=== PATIENT | male | born 1950 | race American Indian/Alaskan Native ===

== ENCOUNTER 2017-09-23 16:31 | Emergency (ER) | payer MEDICARE ==
[2017-09-23 16:51] VITALS: RESP 16; TEMP 98.7; O2SAT 99
--- NOTE | 2017-09-23 17:17 | ED PDOC ---
Arrival/HPI - General Chief Complaint: Abnormal Labs Time Seen by Provider: 09/23/17 16:38 Historian: Patient - History of Present Illness Narrative History of Present Illness (Text): 09/23/17 17:07 A 67 year old male, whose past medical history includes diabetes and hypertension, sent by PMD and presents to the emergency department for abnormal labs. Patient reports having lab work performed yesterday and was called by Dr. Seth Van for abnormal potassium level, however was not told if low or high. Patient denies any symptomatic complaints at this time. PMD: Dr. Seth Van Past Medical History - Provider Review Nursing Documentation Reviewed: Yes - Infectious Disease Hx of Infectious Diseases: None - Cardiac Hx Hypertension: Yes - Endocrine/Metabolic Hx Diabetes Mellitus Type 2: Yes - Psychiatric Hx Substance Use: No Family/Social History - Physician Review Nursing Documentation Reviewed: Yes Family/Social History: No Known Family HX Smoking Status: Never Smoked Hx Alcohol Use: No Hx Substance Use: No Allergies/Home Meds Allergies/Adverse Reactions: Allergies No Known Allergies Allergy (Verified 09/23/17 16:52) Home Medications: Home Meds Medication Instructions Recorded Confirmed GlipiZIDE [Glucotrol] 1 tab PO BID 09/23/17 09/23/17 MetFORMIN [glucoPHAGE] 1 tab PO BID 09/23/17 09/23/17 Review of Systems - Physician Review All systems were reviewed & negative as marked: Yes - Review of Systems Constitutional: absent: Fevers, Night Sweats Respiratory: absent: SOB, Cough Cardiovascular: absent: Chest Pain Gastrointestinal: absent: Abdominal Pain, Diarrhea, Nausea, Vomiting Neurological: absent: Headache, Dizziness Physical Exam Vital Signs Reviewed: Yes Vital Signs Temp Pulse Resp BP Pulse Ox 09/23/17 16:49 98.7 F 74 16 148/82 99 Temperature: Afebrile Blood Pressure: Normal Pulse: Regular Respiratory Rate: Normal Appearance: Positive for: Well-Appearing, Non-Toxic, Comfortable Pain Distress: None Mental Status: Positive for: Alert and Oriented X 3 - Systems Exam Head: Present: Atraumatic, Normocephalic Pupils: Present: PERRL Extroacular Muscles: Present: EOMI Conjunctiva: Present: Normal Mouth: Present: Moist Mucous Membranes Neck: Present: Normal Range of Motion Respiratory/Chest: Present: Clear to Auscultation, Good Air Exchange. No: Respiratory Distress, Accessory Muscle Use Cardiovascular: Present: Regular Rate and Rhythm, Normal S1, S2. No: Murmurs Abdomen: No: Tenderness, Distention, Peritoneal Signs Back: Present: Normal Inspection Upper Extremity: Present: Normal Inspection. No: Cyanosis, Edema Lower Extremity: Present: Normal Inspection. No: Edema Neurological: Present: GCS=15, CN II-XII Intact, Speech Normal Skin: Present: Warm, Dry, Normal Color. No: Rashes Psychiatric: Present: Alert, Oriented x 3, Normal Insight, Normal Concentration Medical Decision Making ED Course and Treatment: 09/23/17 17:10 Impression: 67 year old male with abnormal potassium level sent by PMD Dr. Seth Van. No acute findings on physical examination. Plan: -- Labs -- Reassess and disposition Progress Notes: BMP done, K=5.4. No EKG changes. Case discussed with Dr. Van, he agrees with emergency department plan to discharge patient with outpatient followup. Discussed results and plan with patient and patient's daughter, they are amenable. Reassessment Condition: Unchanged - Lab Interpretations Lab Results: 09/23/17 17:26 09/23/17 17:26 Lab Results 09/23/17 17:26: Sodium 141, Potassium 5.4 H, Chloride 105, Carbon Dioxide 24, Anion Gap 17, BUN 37 H, Creatinine 1.7 H, Est GFR ( Amer) 49, Est GFR ( Non-Af Amer) 41, Random Glucose 114 H, Calcium 9.3, Phosphorus 4.2, Magnesium 1.8, Total Bilirubin 0.2, AST 40, ALT 33, Alkaline Phosphatase 73, Total Protein 8.1, Albumin 4.4, Globulin 3.7, Albumin/Globulin Ratio 1.2 09/23/17 17:26: WBC 6.3, RBC 3.89, Hgb 10.7 L, Hct 32.0 L, MCV 82.3, MCH 27.5, MCHC 33.4, RDW 14.0, Plt Count 154, MPV 10.4, Gran % 45.5 L, Lymph % (Auto) 46.8 H, [place] % (Auto) 5.4, Eos % (Auto) 2.1, Baso % (Auto) 0.2, Gran # 2.88, Lymph # (Auto) 3.0, [place] # (Auto) 0.3, Eos # (Auto) 0.1, Baso # (Auto) 0.01 - EKG Interpretation EKG Interpretation (Text): 18:41- NSR rate 62, QRS normal 86, QTc normal 408, no ST/T changes Type: 12 lead EKG - Scribe Statement The provider has reviewed the documentation as recorded by the Ekaterina Hanson Provider Scribe Attestation: All medical record entries made by the Scribe were at my direction and personally dictated by me. I have reviewed the chart and agree that the record accurately reflects my personal performance of the history, physical exam, medical decision making, and the department course for this patient. I have also personally directed, reviewed, and agree with the discharge instructions and disposition. Disposition/Present on Arrival - Present on Arrival Any Indicators Present on Arrival: No History of DVT/PE: No History of Uncontrolled Diabetes: No Urinary Catheter: No History of Decub. Ulcer: No History Surgical Site Infection Following: None - Disposition Have Diagnosis and Disposition been Completed?: Yes Diagnosis: Hyperkalemia Disposition: HOME/ ROUTINE Disposition Time: 19:00 Patient Problems: Current Active Problems Problem Status Onset Hyperkalemia Acute Condition: GOOD Discharge Instructions (ExitCare): Hyperkalemia (DC) Additional Instructions: VERO LUND, thank you for letting us take care of you today. Your provider was Kylie Galeana MD and you were treated for SENT BY [facility]. The emergency medical care you received today was directed at your acute symptoms. If you were prescribed any medication, please fill it and take as directed. It may take several days for your symptoms to resolve. Return to the Emergency Department if your symptoms worsen, do not improve, or if you have any other problems. Please contact your doctor or call one of the physicians/clinics you have been referred to that are listed on the Patient Visit Information form that is included in your discharge packet. Bring any paperwork you were given at discharge with you along with any medications you are taking to your follow up visit. Our treatment cannot replace ongoing medical care by a primary care provider outside of the emergency department. Thank you for allowing the [facility] team to be part of your care today. If you had an X-Ray or CT scan: A Radiologist will review the ED reading if any change in treatment is needed we will contact you. If you had a blood, urine, or wound culture: It will take several days for the results, if any change in treatment is needed we will contact you. If you had an STI test: It will take 48 hours for the results. Please call after 1 week if you have not heard back. Referrals: Seth Van MD [Primary Care Provider] - Follow up with primary Forms: LOANZ (Greenlandic)
[2017-09-23 17:40] LABS: BASO # 0.01 K/mm3 (0.0-2.0); BASO % 0.2 % (0.0-3.0); EOS # 0.1 (0.0-0.7); EOS % 2.1 % (1.5-5.0); GRAN # 2.88 (1.4-6.5); GRAN % 45.5 % (50.0-68.0); HEMOGLOBIN 10.7 g/dL (14.0-18.0); LYMPH % 46.8 % (22.0-35.0); MEAN CELL VOLUME 82.3 fl (80.0-105.0); MEAN CORPUSCULAR HEMOGLOBIN 27.5 pg (25.0-35.0); MEAN CORPUSCULAR HGB CONC 33.4 g/dl (31.0-37.0); MEAN PLATELET VOLUME 10.4 fl (7.0-11.0); MONO # 0.3 (0.1-0.6); MONO % 5.4 % (1.0-6.0); RBC 3.89 10^6/uL (3.5-6.1); WHITE BLOOD COUNT 6.3 10^3/ul (4.5-11.0)
[2017-09-23 17:53] LABS: ALB/GLOB RATIO 1.2 (1.1-1.8); ALBUMIN 4.4 g/dL (3.0-4.8); CALCIUM 9.3 mg/dL (8.4-10.5)
[2017-09-23 20:00] VITALS: BP 140/76; PULSE 72
--- NOTE | 2017-09-24 12:16 | CARD ---
APPROVED REPORT Date of service: 09/23/2017 EKG Measurement Heart [id number] <Conclusion> Sinus rhythm with 1st degree AV block Otherwise normal ECG
== END 2017-09-23 19:59 | disposition home or self-care (01) ==
LOC: MERGE 16:31 → ED 16:31
DX: E87.5 Hyperkalemia (principal); E11.9 Type 2 diabetes mellitus without complications; I10 Essential (primary) hypertension